=== PATIENT | female | born 1945 ===

== ENCOUNTER 2019-06-25 12:56 | Outpatient (CLI) | payer MEDICARE, OTHER ==
--- NOTE | 2019-06-25 13:40 | RAD ---
2 VIEW CHEST: Date: 06/25/19 INDICATION: Fever, bronchitis. No comparison. FINDINGS: Lungs are clear of infiltrate. Vascular markings normal. Heart size normal. Bilateral apical pleural thickening. Osseous structures unremarkable. IMPRESSION: No acute findings. POS: [facility]
== END 2019-06-25 12:57 | disposition home or self-care (01) ==
LOC: BICRAD 12:56
PROVIDERS: ATTEND Internal Medicine
DX: R50.9 Fever, unspecified (principal); R05 Cough
CPT/HCPCS: 71046